=== PATIENT | female | born 1990 | race Caucasian/White ===

== ENCOUNTER 2020-12-18 19:26 | Emergency (ER) | payer SELFPAY ==
[~2020-12-18] VITALS: Ht 160 cm; Wt 66.0 kg
[2020-12-18 21:22] LABS: BASOPHILS % 0.7 % (0.0-2.0); EOSINOPHILS % 1.6 % (0.0-5.0); HEMOGLOBIN. 13.4 g/dL (12.0-16.0); LYMPHOCYTES % 47.3 % (20.0-50.0); MEAN CORPUSCULAR HEMOGLOBIN 28.9 pg (28.0-32.0); MEAN CORPUSCULAR VOLUME 88.5 fL (81.0-99.0); MEAN PLATELET VOLUME 8.1 fl (7.4-10.4); MONOCYTES % 4.6 % (2.0-8.0); NEUTROPHILS % 45.8 % (40.0-76.0); PLATELET 355 x1000/uL (130-400); RED BLOOD CELL COUNT 4.64 mill/uL (4.2-5.4); RED CELL DISTRIBUTION WIDTH 15.2 % (11.6-14.6)
[2020-12-18 21:33] LABS: CHLORIDE 108 mEq/L (98-107)
[2020-12-18 21:37] LABS: ETHANOL BLOOD 180 mg/dL
[2020-12-18] MEDS ORDERED: POTASSIUM CHLORIDE 20MEQ TABLET SR PO ONE (22:45)
[2020-12-19 04:00] VITALS: BP 115/78
== END 2020-12-19 07:00 | disposition home or self-care (01) ==
LOC: ER 19:26
DX: F10.129 Alcohol abuse with intoxication, unspecified (principal); Y90.6 Blood alcohol level of 120-199 mg/100 ml; G92 Toxic encephalopathy
CPT/HCPCS: 36415; 80053; 80320; 85025; 93005; 99284; G0480